=== PATIENT | male | born 1975 | race Caucasian/White ===

== ENCOUNTER 2020-10-23 11:54 | Emergency (ER) | payer BC, MEDICAID, SELFPAY ==
[2020-10-23 12:18] VITALS: BP 148/106; PULSE 88; RESP 16; TEMP 36.8; O2SAT 100
--- NOTE | 2020-10-23 12:19 | ED.GENADULT ---
HPI - General Adult General Chief complaint: Nausea/Vomiting/Diarrhea Stated complaint: BODY ACHES/FEVER/VOMITING/DIARRHEA Time Seen by Provider: 10/23/20 12:10 Source: patient and RN notes reviewed Mode of arrival: ambulatory Limitations: no limitations History of Present Illness HPI narrative: 45-year-old male presents to the [facility] feeling better today, states last day or so he has had nausea, vomiting, diarrhea and generalized body aches associated with subjective fevers. Patient states that multiple people called off at work and states he just needs something to say he was seen by a medical provider, discharge papers would work. Related Data Allergies Allergy/AdvReac Type Severity Reaction Status Date / Time No Known Allergies Allergy Unknown Verified 03/25/20 14:17 Review of Systems Review of Systems: All systems reviewed & are unremarkable except as noted in HPI and below Constitutional: Constitutional: Reports as per HPI, Denies chills and Reports fever(s) (Subjective) Eyes: Eyes: Reports no additional eye complaints and Denies change in vision ENT: Reports system reviewed and no additional complaints, except as documented, Denies dysphagia, Denies dizziness, Denies epistaxis and Denies sore throat Cardiovascular: Cardiovascular: Reports no additional cardiovascular complaints and Denies chest pain Respiratory: Respiratory: Reports no additional respiratory complaints, Denies cough and Denies dyspnea Gastrointestinal: Gastrointestinal: Reports as per HPI, Denies abdominal pain, Reports diarrhea, Reports nausea and Reports vomiting Genitourinary: Genitourinary: Reports no additional male genitourinary complaints Musculoskeletal: Musculoskeletal: Reports no additional musculoskeletal complaints Integumentary/Breasts: Skin/Breast: Reports system reviewed and no additional complaints, except as docu Neurologic: Reports system reviewed and no additional complaints, except as documented Psychiatric: Psychiatric: Reports no additional psychiatric complaints Allergic/Immunologic: Allergic/Immunologic: Reports no additional allergic/immunologic complaints [facility] Past Medical History Medical History (Updated 10/23/20 @ 12:20 by Isabella Kulkarni) Body mass index [BMI] 28.0-28.9, adult (07/23/17) 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 There is no relevant family history pertinent to the patient complaint. Exam Const: General: healthy appearing, no acute distress and alert Nutritional Appearance: well nourished and obese Orientation/consciousness: patient oriented x3 Limitations: no limitations HENMT: Head: normal to inspection Ears: external ears normal, TM's normal bilaterally and EAC's normal Eyes: Conjunctivae: conjunctivae normal Pupils: Equal, round and reactive pupils present Neck: Neck: normal visual inspection, no lymphadenopathy and no meningeal signs Chest: Chest palpation & inspection: normal inspection of the chest Resp: Effort & Inspection: normal respiratory effort and no use of accessory muscles Auscultation: clear to auscultation bilaterally, no crackles, no rales, no rhonchi and no wheezes Cardio: Rate: regular rate Rhythm: regular rhythm GI: GI Palp: Yes Soft to palpation, No Tenderness to palpation present (GI), No Guarding due
[2020-10-24 17:13] LABS: SARS-CoV-2 RNA PCR Negative
== END 2020-10-23 12:28 | disposition home or self-care (01) ==
PROVIDERS: Emergency Provider Nurse Practitioner; PCP Internal Medicine
DX: K52.9 Noninfective gastroenteritis and colitis, unspecified (principal); Z20.822 Contact with and (suspected) exposure to COVID-19; F17.200 Nicotine dependence, unspecified, uncomplicated; M41.117 Juvenile idiopathic scoliosis, lumbosacral region
CPT/HCPCS: 99213; C9803; G0463; U0003; U0005

== ENCOUNTER 2020-12-13 09:03 | Outpatient (CLI) | payer BC, MEDICAID, SELFPAY ==
[2020-12-13 10:54] LABS: Alanine Aminotransferase 26 U/L (4-50); Albumin Level 4.9 g/dL (3.5-5.1); Alkaline Phosphatase 62 U/L (38-126); Anion Gap 9 mmol/L (8-16); Aspartate Amino Transferase 31 U/L (17-59); Bilirubin,Total 0.7 mg/dL (0.2-1.3); Blood Urea Nitrogen 16 mg/dL (9-20); Calcium 9.1 mg/dL (8.4-10.2); Carbon Dioxide 27 mmol/L (22-30); Chloride 104 mmol/L (98-107); Cholesterol 160 mg/dL (0-200); Estimated Glomerular Filt Rate > 60; Glucose 111 mg/dL (65-110); HDL Direct 44 mg/dL; Potassium 4.2 mmol/L (3.4-5.0); Sodium 140 mmol/L (137-145); Triglycerides 90 mg/dL (<150)
[2020-12-13 12:12] LABS: LDL Cholesterol Direct 86 mg/dL
== END 2020-12-13 09:04 | disposition home or self-care (01) ==
PROVIDERS: PCP Internal Medicine; Visit Provider Nurse Practitioner
DX: Z00.00 Encounter for general adult medical examination without abnormal findings (principal); Z13.220 Encounter for screening for lipoid disorders
CPT/HCPCS: 36415; 80053; 80061

== ENCOUNTER 2022-03-11 13:10 | Emergency (ER) | payer BC, MEDICAID, SELFPAY ==
[2022-03-11 13:23] VITALS: BP 157/90; PULSE 78; RESP 16; TEMP 36.6; O2SAT 100
--- NOTE | 2022-03-11 13:58 | ED.URI ---
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 PTSD (post-traumatic stress disorder) Family History Family History Mother Diabetes mellitus Sibling Hypertension Family history of malignant neoplasm Father Family history of cardiovascular disease Other Cerebrovascular accident Social History Social History (Updated 01/01/22 @ 08:56 by Coleen Waite CMA) Smoking packs per day: 0.15 Smoking cigarettes per day: 3.0 Years smoked: 23 Smoking pack-years: 3.45 Smoking status: Light tobacco smoker Tobacco type: pipe Second hand tobacco smoke exposure: Yes Alcohol intake: current Drinks per week: 42 Alcohol use details: beer Substance use: current Substance use type: marijuana Lack of Transportation: No Lack of Food: Never True Difficulty Paying Gas/Electric Bills: No Difficulty Paying for Meds: No Currently Unemployed: No Education: High School Diploma/GED Difficulty w/ Childcare or Family Care: No Course Vital Signs Vital signs: Vital Signs Temperature 36.6 C 03/11/22 13:23 Pulse Rate 78 03/11/22 13:23 Respiratory Rate 16 03/11/22 13:23 Blood Pressure 157/90 H 03/11/22 13:23 Pulse Oximetry 100 03/11/22 13:23 Temperature 36.6 C 03/11/22 13:23 Pulse Rate 78 03/11/22 13:23 Respiratory Rate 16 03/11/22 13:23 Blood Pressure 157/90 H 03/11/22 13:23 Pulse Oximetry 100 03/11/22 13:23 Discharge Plan Discharge Patient Disposition: Home, Self-Care Condition: Stable Instructions: Antibiotic Form Prescriptions: No Action buspirone 7.5 mg tablet 7.5 mg PO DAILY Qty: 90 1RF escitalopram oxalate [Lexapro] 20 mg tablet 20 mg PO DAILY Qty: 90 1RF Follow-up/Referrals: Kalpesh Loja DO [Primary Care Provider] - [facility] [place] Coma Scale Eyes: Open Verbal: Oriented and Alert Motor: Follows Commands [place] Coma Total Score: 15
--- NOTE | 2022-03-11 14:12 | ED.URI ---
HPI - URI/Sore Throat General Chief Complaint: Upper Respiratory Infection Stated Complaint: covid symptoms Time Seen by Provider: 03/11/22 14:05 Source: patient, RN notes reviewed and old records reviewed Mode of arrival: ambulatory Limitations: no limitations History of Present Illness HPI Narrative: 46 year old male who presents to [facility] care with complaints of illness for the past 5 days with loss of taste, weakness and fevers, cough with some sinus congestion and drainage. Patient states that he has been sleeping a lot and he has some mild body aches. Patient has not had COVD vaccinations or any flu shot.Patient reports that his fevers have mostly resolved. has taken rare dose of Tylenol or Ibuprofen. MD elicited complaint: fever, cough and other (weakness) Onset (ago): day(s) (5) Able to tolerate fluids by mouth: Yes Treatments prior to arrival: acetaminophen and ibuprofen Related Data Allergies Allergy/AdvReac Type Severity Reaction Status Date / Time No Known Allergies Allergy Unknown Verified 03/11/22 13:30 Review of Systems Review of Systems: CONSTITUTIONAL Reports malaise, chills, sweats, or fever. EYES: Denies visual changes, redness, or discharge. ENT: Reports rhinorrhea, congestion, sinus pain, no otalgia and sore throat. CARDIOVASCULAR: Denies chest pain, palpitations, or edema. RESPIRATORY: Reports cough.? Denies dyspnea. GASTROINTESTINAL: Denies abdominal pain, nausea, vomiting, diarrhea SKIN: Denies rash or itching. MUSCULOSKELETAL: myalgia.Reported NEUROLOGIC: Denies headache. 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 PTSD (post-traumatic stress disorder) Surgical History Surgical History (Updated 03/17/22 @ 13:45 by Latoya Hadley NP) H/O right inguinal hernia repair Family History Family History Mother Diabetes mellitus Sibling Hypertension Family history of malignant neoplasm Father Family history of cardiovascular disease Other Cerebrovascular accident Social History Social History (Updated 03/17/22 @ 13:55 by Latoya Hadley NP) Smoking packs per day: 0.15 Smoking cigarettes per day: 3.0 Years smoked: 23 Smoking pack-years: 3.45 Smoking status: Current every day smoker Tobacco type: pipe Second hand tobacco smoke exposure: Yes Alcohol intake: current Alcohol use details: beer Substance use: current Substance use type: marijuana Lack of Transportation: No Lack of Food: Never True Difficulty Paying Gas/Electric Bills: No Difficulty Paying for Meds: No Currently Unemployed: No Education: High School Diploma/GED Difficulty w/ Childcare or Family Care: No Comments At time of signature, agree with nursing past medical, surgical, social and family history. There is no relevant family history pertinent to the presenting complaint Exam Narrative: GENERAL: Well-appearing, well-nourished, and in no acute distress. HEAD: Normocephalic EYES: PERRLA, conjunctivae clear ENT: Nares clear, turbinates edematous and erythematous, clear discharge. Mucous membranes moist. TM pearly carpenter with dull light reflex bilaterally; no tragal tenderness. Oropharynx erythematous without lesions. Tonsils not enlarged and without exudate, no drooling, no hoarseness, no trismus, uvula midline.some post nasal drainage NECK: Supple. No lymphadenopathy CHEST: Clear to auscultation, breath sounds equal. No wheezing, rhonchi, rales, or stridor. No respiratory distress, speaks in full sentences.cough noted with SAO2 100% on room air HEART: Regular rate and rhythm. No murmur heard. SKIN: Warm
== END 2022-03-11 14:32 | disposition home or self-care (01) ==
PROVIDERS: Emergency Provider Registered Nurse; PCP Internal Medicine
DX: U07.1 COVID-19 (principal); F17.210 Nicotine dependence, cigarettes, uncomplicated; F17.290 Nicotine dependence, other tobacco product, uncomplicated; F12.90 Cannabis use, unspecified, uncomplicated; M41.116 Juvenile idiopathic scoliosis, lumbar region; Z28.310 Unvaccinated for COVID-19
CPT/HCPCS: 87426; 99213; C9803; G0463

== ENCOUNTER 2022-07-12 15:01 | Emergency (ER) | payer BC, MEDICAID, SELFPAY ==
--- NOTE | 2022-07-12 15:06 | ED.URI ---
HPI - URI/Sore Throat General Chief Complaint: Upper Respiratory Infection Stated Complaint: fever,congestion Time Seen by Provider: 07/12/22 15:03 Source: patient and RN notes reviewed History of Present Illness HPI Narrative: 46 yo M presents to urgent care with requests for a work note to go back to work. Pt states he developed a fever and was sniffling night into Wednesday. Pt states he called off on Wednesday and his place of work is requesting he be seen. Pt states the fever broke by Wednesday and his symptoms are improving. Pt reports an intermittent cough at this time. Denies any fevers, chills, chest pain, SOB, ear pain, sore throat, N/V/D. Related Data Allergies Allergy/AdvReac Type Severity Reaction Status Date / Time No Known Allergies Allergy Unknown Verified 07/12/22 15:06 Review of Systems Review of Systems: Pertinent positives and pertinent negatives per HPI. 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 PTSD (post-traumatic stress disorder) Surgical History Surgical History (Updated 03/17/22 @ 13:45 by Latoya Hadley NP) H/O right inguinal hernia repair Family History Family History Mother Diabetes mellitus Sibling Hypertension Family history of malignant neoplasm Father Family history of cardiovascular disease Other Cerebrovascular accident Social History Social History (Updated 03/17/22 @ 13:55 by Latoya Hadley NP) Smoking packs per day: 0.15 Smoking cigarettes per day: 3.0 Years smoked: 23 Smoking pack-years: 3.45 Smoking status: Current every day smoker Tobacco type: pipe Second hand tobacco smoke exposure: Yes Alcohol intake: current Alcohol use details: beer Substance use: current Substance use type: marijuana Lack of Transportation: No Lack of Food: Never True Difficulty Paying Gas/Electric Bills: No Difficulty Paying for Meds: No Currently Unemployed: No Education: High School Diploma/GED Difficulty w/ Childcare or Family Care: No Comments At the time of my signature, I reviewed and agree with the nursing past medical, surgical, social, and family history. There is no relevant family history pertinent to the patient complaint. Exam Narrative: GENERAL: This is a well-nourished, well-developed patient, in no apparent distress. HEAD: normocephalic, atraumatic. EYES:Sclera clear/white. Vision is grossly intact. EARS: External ears normal, auditory canals clear and without drainage. Hearing grossly intact. NOSE: External nose normal with no obvious nasal discharge, nares without redness, no rhinorrhea. THROAT: Mucous membranes moist, posterior pharynx clear. NECK: Neck supple, non-tender without lymphadenopathy, masses or thyromegaly. CARDIOVASCULAR: Regular rate and rhythm without murmurs, gallops, or rubs. RESPIRATORY: Clear to auscultation. Breath sounds equal bilaterally. No wheezes, rales, or rhonchi. SKIN: warm, intact with no suspicious lesions or rash, good texture and turgor. NEURO: awake, alert, and oriented to person, place and time. There were no obvious focal neurologic abnormalities. Course Course Level of Care: Express Care Visit Vital Signs Vital signs: Reviewed MDM - URI/Sore Throat MDM Narrative Medical decision making narrative: Pt in NAD. Just asking for a work note to go back to work tomorrow. Differential Diagnosis Differential diagnosis: Likely upper respiratory infection, viral infection and pharyngitis Critical Care Time Critical Care Time Critical Care Time: No Discharge Plan Discharge Clinical Impression: Encounter for well adult exam without abnormal findings Patient Disposition: Home,
[2022-07-12 15:10] VITALS: BP 144/90; PULSE 70; RESP 16; TEMP 36.4; O2SAT 99
== END 2022-07-12 15:17 | disposition home or self-care (01) ==
PROVIDERS: Emergency Provider Nurse Practitioner Family; PCP Internal Medicine
DX: Z71.1 Person with feared health complaint in whom no diagnosis is made (principal); F17.210 Nicotine dependence, cigarettes, uncomplicated; F12.90 Cannabis use, unspecified, uncomplicated; F32.A Depression, unspecified
CPT/HCPCS: 99211; G0463

== ENCOUNTER 2022-08-10 15:20 | Emergency (ER) | payer BC, MEDICAID, SELFPAY ==
--- NOTE | ~2022-08-10 | XR_ITS ---
XR chest 2V DATE: 08/10/2022 15:46 INDICATION: Cough for 2 weeks TECHNIQUE: 2 views COMPARISON: None FINDINGS: Normal heart size. No hilar or mediastinal enlargement. No pulmonary infiltrate or consolid ation, pleural effusion or pulmonary vascular congestion or pneumothorax. IMPRESSION: No active cardiopulmonary disease Reviewed, dictated and finalized at location B.
[2022-08-10 15:28] VITALS: BP 153/97; PULSE 83; RESP 16; TEMP 36.7; O2SAT 98
--- NOTE | 2022-08-10 15:28 | ED.URI ---
HPI - URI/Sore Throat General Chief Complaint: Upper Respiratory Infection Stated Complaint: sore throat,cough Time Seen by Provider: 08/10/22 15:35 Source: patient, RN notes reviewed and old records reviewed Mode of arrival: ambulatory Limitations: no limitations History of Present Illness HPI Narrative: 46 year old male who presents to [facility] care with complaints of chest congestion and productive cough for the past 2 weeks. Patient was seen in the Clinic on July 12 for return to work note for fever and cough which had resolved. 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 Patient reports that he has not had a known fever, chills or sweats or any acute shortness of breath. Patient reports he had coughing fit early Wednesday morning and did not go to work on Wednesday and needs note to return. MD elicited complaint: cough and other (congestion) Onset (ago): week(s) (2) Description of mucous: yellow Able to tolerate fluids by mouth: Yes Treatments prior to arrival: none Related Data Allergies Allergy/AdvReac Type Severity Reaction Status Date / Time No Known Allergies Allergy Unknown Verified 08/10/22 15:26 Review of Systems Review of Systems: CONSTITUTIONAL: Denies malaise, chills, sweats, or fever. EYES: Denies visual changes, redness, or discharge. ENT: Reports rhinorrhea, congestion, no sinus pain,no otalgia no sore throat, some hoarseness. CARDIOVASCULAR: Denies chest pain, palpitations, or edema. RESPIRATORY: Reports cough.? Denies any acute dyspnea. GASTROINTESTINAL: Denies abdominal pain, nausea, vomiting, diarrhea SKIN: Denies rash or itching. MUSCULOSKELETAL: Denies myalgia. NEUROLOGIC: Denies headache. 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 PTSD (post-traumatic stress disorder) Surgical History Surgical History (Updated 03/17/22 @ 13:45 by Latoya Hadley NP) H/O right inguinal hernia repair Family History Family History Mother Diabetes mellitus Sibling Hypertension Family history of malignant neoplasm Father Family history of cardiovascular disease Other Cerebrovascular accident Social History Social History (Updated 03/17/22 @ 13:55 by Latoya Hadley NP) Smoking packs per day: 0.15 Smoking cigarettes per day: 3.0 Years smoked: 23 Smoking pack-years: 3.45 Smoking status: Current every day smoker Tobacco type: pipe Second hand tobacco smoke exposure: Yes Alcohol intake: current Alcohol use details: beer Substance use: current Substance use type: marijuana Lack of Transportation: No Lack of Food: Never True Difficulty Paying Gas/Electric Bills: No Difficulty Paying for Meds: No Currently Unemployed: No Education: High School Diploma/GED Difficulty w/ Childcare or Family Care: No Comments At time of signature, agree with nursing past medical, surgical, social and family history. There is no relevant family history pertinent to the presenting complaint Exam Narrative: GENERAL: Well-appearing, well-nourished, and in no acute distress. HEAD: Normocephalic EYES: PERRLA, conjunctivae clear ENT: Nares clear, turbinates edematous and erythematous, clear discharge. Mucous membranes moist. TM pearly carpenter with dull light reflex bilaterally; no tragal tenderness. Oropharynx erythematous without lesions. Tonsils not enlarged and without exudate, no drooling, positive for hoarseness, no trismus, uvula midline.post nasal drainage noted. NECK: Supple. No lymphadenopathy CHEST: Clear to auscultation, breath sounds equal. No wh
== END 2022-08-10 16:05 | disposition home or self-care (01) ==
PROVIDERS: Emergency Provider Registered Nurse
DX: J06.9 Acute upper respiratory infection, unspecified (principal); R05.9 Cough, unspecified; F17.210 Nicotine dependence, cigarettes, uncomplicated; F12.90 Cannabis use, unspecified, uncomplicated; M41.116 Juvenile idiopathic scoliosis, lumbar region; F32.A Depression, unspecified
CPT/HCPCS: 71046; 99213; G0463

== ENCOUNTER 2022-10-04 16:35 | Emergency (ER) | payer BC, MEDICAID, SELFPAY ==
--- NOTE | 2022-10-04 16:47 | ED.GENADULT ---
HPI - General Adult General Chief complaint: Wound/Laceration Stated complaint: forehead laceration Time Seen by Provider: 10/04/22 16:39 Source: patient and RN notes reviewed History of Present Illness HPI narrative: 47 yo M presents to urgent care with visitor at side. 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 Pt states he hit his forehead on the garage floor, causing a laceration Pt states he believes he was out for only a couple seconds and the impact woke him up. Pt states he applied pressure to the laceration which resolved his bleeding but he has had a headache ever since. Pt denies any vomiting, visual disturbance, neck pain, numbness, or tingling. Pt has not taken anything for his headache pain. Pt is requesting a work note to go back to work tomorrow if possible. Related Data Allergies Allergy/AdvReac Type Severity Reaction Status Date / Time No Known Allergies Allergy Unknown Verified 10/04/22 16:55 Review of Systems Review of Systems: CONSTITUTIONAL: Denies fever, chills, or sweats. EYES: Denies visual changes, redness, or discharge. ENT: Denies otalgia and sore throat CARDIOVASCULAR: Denies chest pain, palpitations, or edema. RESPIRATORY: Denies cough or dyspnea. GASTROINTESTINAL: Denies abdominal pain, nausea, vomiting, or diarrhea. GENITOURINARY: Denies dysuria or hematuria. SKIN: laceration to forehead MUSCULOSKELETAL: Denies back pain, joint pain, or myalgia. NEUROLOGIC: headache Pertinent positives per HPI. 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 PTSD (post-traumatic stress disorder) Surgical History Surgical History (Updated 03/17/22 @ 13:45 by Latoya Hadley NP) H/O right inguinal hernia repair Family History Family History Mother Diabetes mellitus Sibling Hypertension Family history of malignant neoplasm Father Family history of cardiovascular disease Other Cerebrovascular accident Social History Social History (Updated 03/17/22 @ 13:55 by Latoya Hadley NP) Smoking packs per day: 0.15 Smoking cigarettes per day: 3.0 Years smoked: 23 Smoking pack-years: 3.45 Smoking status: Current every day smoker Tobacco type: pipe Second hand tobacco smoke exposure: Yes Alcohol intake: current Alcohol use details: beer Substance use: current Substance use type: marijuana Lack of Transportation: No Lack of Food: Never True Difficulty Paying Gas/Electric Bills: No Difficulty Paying for Meds: No Currently Unemployed: No Education: High School Diploma/GED Difficulty w/ Childcare or Family Care: No Comments At the time of my signature, I reviewed and agree with the nursing past medical, surgical, social, and family history. There is no relevant family history pertinent to the patient complaint. Exam Narrative: GENERAL: This is a well-nourished, well-developed patient, in no apparent distress. HEAD: normocephalic, atraumatic. EYES: Sclera clear/white. Vision is grossly intact. EARS: External ears normal, auditory canals clear and without drainage, TMs normal without perforation. Hearing grossly intact. NOSE: External nose normal with no obvious nasal discharge, nares without redness, no rhinorrhea. THROAT: Mucous membranes moist, posterior pharynx clear. NECK: Neck supple, non-tender without lymphadenopathy, masses or thyromegaly. CARDIOVASCULAR: Regular rate and rhythm without murmurs, gallops, or rubs. RESPIRATORY: Clear to auscultation. Breath sounds equal bilaterally. No wheezes, rales, or rhonchi. SKIN: 2.5-3 cm, healing, scabbed, wo
[2022-10-04 16:50] VITALS: BP 124/83; PULSE 80; RESP 16; TEMP 36.8; O2SAT 100
== END 2022-10-04 17:13 | disposition home or self-care (01) ==
PROVIDERS: Emergency Provider Nurse Practitioner Family; PCP Family Medicine
DX: S06.0X0A Concussion without loss of consciousness, initial encounter (principal); W19.XXXA Unspecified fall, initial encounter; Y99.0 Civilian activity done for income or pay; M41.117 Juvenile idiopathic scoliosis, lumbosacral region; F17.210 Nicotine dependence, cigarettes, uncomplicated; F17.290 Nicotine dependence, other tobacco product, uncomplicated; F32.A Depression, unspecified; F43.10 Post-traumatic stress disorder, unspecified
CPT/HCPCS: 99211; G0463

== ENCOUNTER 2022-10-05 14:04 | Emergency (ER) | payer BC, MEDICAID, SELFPAY ==
--- NOTE | ~2022-10-05 | CT_ITS ---
EXAMINATION: CT brain wo con DATE: 10/05/2022 18:15 INDICATION: syncope . TECHNIQUE: Computed tomography (CT) of the head was performed without intravenous contrast. The mA wa s adjusted according to patient size. Iterative reconstruction technique was employed. The dose-lengt h product was 681.00 mGy-cm. COMPARISON: None. FINDINGS: No acute intracranial hemorrhage or extra-axial fluid collection. No hydrocephalus, mass, or herniation. No acute ischemic infarct. Unremarkable dural venous sinus attenuation. No acute osseous abnormality. The aerated spaces are clear. IMPRESSION: No acute intracranial process. Reviewed, dictated and finalized at location K.
--- NOTE | 2022-10-05 14:07 | ECG_ITS ---
Measurements Intervals [place] Rate: 74 P: 29 VA: 152 QRS: 1 QRSD: 98 T: 32 QT: 372 QTc: 414 Interpretive Statements SINUS RHYTHM BORDERLINE R WAVE PROGRESSION, ANTERIOR LEADS CONSIDER INFERIOR INFARCT, AGE INDETERMINATE ABNORMAL ECG NO PREVIOUS ECG AVAILABLE FOR COMPARISON Electronically Signed On 10-05-2022 16:38:23 CDT by Pedro Love D.O.
[2022-10-05 14:44] VITALS: BP 141/83; PULSE 65; RESP 16; TEMP 36.7; O2SAT 99
--- NOTE | 2022-10-05 17:53 | ED.SYNCOPE ---
HPI - Syncope General Chief Complaint: Dizziness Stated Complaint: DIZZINESS Time Seen by Provider: 10/05/22 17:44 History of Present Illness HPI narrative: Pt presents with recurring intermittent episodes of syncope which occured when he is coughing. Pt denies CP. Pt had a coughing episode 5 days ago and passed out and fell forward striking head on concrete. Pt has mild TAYLOR still. Pt is smoker. Pt has never had any work up for this. 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 PTSD (post-traumatic stress disorder) Surgical History Surgical History (Updated 03/17/22 @ 13:45 by Latoya Hadley NP) H/O right inguinal hernia repair Family History Family History Mother Diabetes mellitus Sibling Hypertension Family history of malignant neoplasm Father Family history of cardiovascular disease Other Cerebrovascular accident Social History Social History (Updated 03/17/22 @ 13:55 by Latoya Hadley NP) Smoking packs per day: 0.15 Smoking cigarettes per day: 3.0 Years smoked: 23 Smoking pack-years: 3.45 Smoking status: Current every day smoker Tobacco type: pipe Second hand tobacco smoke exposure: Yes Alcohol intake: current Alcohol use details: beer Substance use: current Substance use type: marijuana Lack of Transportation: No Lack of Food: Never True Difficulty Paying Gas/Electric Bills: No Difficulty Paying for Meds: No Currently Unemployed: No Education: High School Diploma/GED Difficulty w/ Childcare or Family Care: No Exam Const: General: healthy appearing Nutritional Appearance: well nourished Orientation/consciousness: patient oriented x3 Limitations: no limitations HENMT: Head: laceration (healing stellate laceration to foerhead) Eyes: Conjunctivae: conjunctivae normal Pupils: Equal, round and reactive pupils present EOM: EOMs intact bilaterally Neck: Neck: normal visual inspection Resp: Effort & Inspection: normal respiratory effort Auscultation: clear to auscultation bilaterally Cardio: Rate: regular rate Rhythm: regular rhythm Skin: General skin exam: normal color Rashes: no rashes Neuro: General: patient oriented x3, moves all extremities, no meningeal signs, no focal motor deficits and CN's II-XI intact bilaterally Cranial nerves: Yes Nystagmus not present Speech: normal speech Gait exam (Neuro): Normal gait present Extrem: General: normal to inspection and no clubbing, cyanosis or edema Psych: Mental Status: mental status grossly normal Affect: normal affect Attitude: cooperative Course Vital Signs Vital signs: Vital Signs Temperature 98.1 F 10/05/22 14:44 Pulse Rate 65 10/05/22 14:44 Respiratory Rate 16 10/05/22 14:44 Blood Pressure 141/83 H 10/05/22 14:44 Pulse Oximetry 99 10/05/22 14:44 Oxygen Delivery Room Air 10/05/22 14:44 Temperature 98.1 F 10/05/22 14:44 Pulse Rate 65 10/05/22 14:44 Respiratory Rate 16 10/05/22 14:44 Blood Pressure 141/83 H 10/05/22 14:44 Pulse Oximetry 99 10/05/22 14:44 Oxygen Delivery Room Air 10/05/22 14:44 MDM - Syncope MDM Narrative Medical decision making narrative: ssems like cough induced syncope but will check CT head since hit head and had TAYLOR. will check EKG and labs. labs ekg and ct all fine safe for discharge home. Lab Data Attestation: I reviewed the patient's lab results. 10/05/22 18:05
[2022-10-05 18:12] LABS: Basophils Absolute Auto 0.1 K/mm3 (0.0-0.1); Basophils Percent Auto 0.8 % (0.2-1.2); Eosinophils Absolute Auto 0.2 K/mm3 (0-0.3); Eosinophils Percent Auto 2.5 % (0-4.4); Hematocrit 46.6 % (42.0-52.0); Hemoglobin 16.5 g/dL (14.0-18.0); Immature Granulocyte Absolute 0.03 K/mm3 (0.00-0.031); Immature Granulocyte Percent A 0.3 % (0-0.5); Lymphocytes Absolute Auto 2.06 K/mm3 (0.9-3.2); Lymphocytes Percent Auto 23.5 % (18.3-44.2); Mean Corpuscular HGB Conc 35.4 g/dl (32-36); Mean Corpuscular Hemoglobin 35.8 pg (26-34); Mean Corpuscular Volume 101.1 fl (80-100); Mean Platelet Volume 8.7 fl (7.4-10.4); Monocytes Absolute Auto 0.7 K/mm3 (0.1-0.6); Monocytes Percent Auto 7.5 % (2.6-8.5); Neutrophils Absolute Auto 5.7 K/mm3 (1.3-6.7); Neutrophils Percent Auto 65.4 % (45.5-73.1); Platelet Count Result 229 k/mm3 (150-375); Red Blood Count 4.61 M/mm3 (4.6-6.20); White Blood Count 8.8 K/mm3 (4.5-10.0)
[2022-10-05 18:22] LABS: Alanine Aminotransferase 44 U/L (6-50); Alkaline Phosphatase 58 U/L (38-126); Anion Gap 10 mmol/L (8-16); Aspartate Amino Transferase 35 U/L (17-59); Bilirubin,Total 0.5 mg/dL (0.2-1.3); Blood Urea Nitrogen 14 mg/dL (9-20); Calcium 9.2 mg/dL (8.4-10.2); Carbon Dioxide 27 mmol/L (22-30); Chloride 102 mmol/L (98-107); Estimated CRCL calculation 105 ml/min; Estimated Glomerular Filt Rate > 60; Glucose 93 mg/dL (65-110); Potassium 3.9 mmol/L (3.4-5.0); Sodium 139 mmol/L (137-145)
[2022-10-05 18:23] LABS: Partial Thromboplastin Time 27.8 SECONDS (22.3-36.8); Prothrombin Time 13.5 Seconds (11.1-14.7)
[2022-10-05 18:56] VITALS: BP 138/90; PULSE 60; RESP 19; O2SAT 98
== END 2022-10-05 18:59 | disposition home or self-care (01) ==
PROVIDERS: Emergency Provider Emergency Medicine; PCP Family Medicine
DX: R55 Syncope and collapse (principal); R05.4 Cough syncope; M41.117 Juvenile idiopathic scoliosis, lumbosacral region; F32.A Depression, unspecified; F43.10 Post-traumatic stress disorder, unspecified; F17.290 Nicotine dependence, other tobacco product, uncomplicated; R94.31 Abnormal electrocardiogram [ECG] [EKG]
CPT/HCPCS: 36415; 70450; 80053; 85025; 85610; 85730; 93005; 99284

== ENCOUNTER 2022-11-17 17:07 | Emergency (ER) | payer SELFPAY ==
--- NOTE | 2022-11-17 17:08 | ED.URI ---
HPI - URI/Sore Throat General Chief Complaint: Upper Respiratory Infection Stated Complaint: Flu symptoms Source: patient and RN notes reviewed Mode of arrival: ambulatory Limitations: no limitations History of Present Illness HPI Narrative: Patient is a 47-year-old male who presents to the [facility] with requests for work note. Patient states that he had flu like symptoms starting on Wednesday. Patient reports generalized body aches, fatigue, nausea, and vomiting x 1. States that he is no longer experiencing symptoms, but needs an excuse from work. Patient states that he had 5-6 coworkers with similar symptoms that missed work, so his boss is requiring a work note. He denies all symptoms at this time. Denies chest pain or shortness of breath. Denies nausea, vomiting, diarrhea, abdominal pain. Denies cough, congestion, and fever. Related Data Allergies Allergy/AdvReac Type Severity Reaction Status Date / Time No Known Allergies Allergy Unknown Verified 10/04/22 16:55 Review of Systems Review of Systems: CONSTITUTIONAL: Denies fever, chills, or sweats. EYES: Denies visual changes, redness, or discharge. ENT: Denies otalgia and sore throat CARDIOVASCULAR: Denies chest pain, palpitations, or edema. RESPIRATORY: Denies cough or dyspnea. GASTROINTESTINAL: Denies abdominal pain, nausea, vomiting, or diarrhea. GENITOURINARY: Denies dysuria or hematuria. SKIN: Denies rash or itching. MUSCULOSKELETAL: Denies back pain, joint pain, or myalgia. NEUROLOGIC: Denies headache, numbness, or weakness. Pertinent positives per HPI. 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 PTSD (post-traumatic stress disorder) Surgical History Surgical History H/O right inguinal hernia repair Family History Family History Mother Diabetes mellitus Sibling Hypertension Family history of malignant neoplasm Father Family history of cardiovascular disease Other Cerebrovascular accident Social History Social History Smoking packs per day: 0.15 Smoking cigarettes per day: 3.0 Years smoked: 23 Smoking pack-years: 3.45 Smoking status: Current every day smoker Tobacco type: pipe Second hand tobacco smoke exposure: Yes Alcohol intake: current Alcohol use details: beer Substance use: current Substance use type: marijuana Lack of Transportation: No Lack of Food: Never True Difficulty Paying Gas/Electric Bills: No Difficulty Paying for Meds: No Currently Unemployed: No Education: High School Diploma/GED Difficulty w/ Childcare or Family Care: No Comments At the time of my signature, I reviewed and agree with the nursing past medical, surgical, social, and family history. There is no relevant family history pertinent to the patient complaint. Exam Narrative: GENERAL: This is a well-nourished, well-developed patient, in no apparent distress. HEAD: normocephalic, atraumatic. EYES: Sclera clear/white. Vision is grossly intact. EARS: External ears normal. Hearing grossly intact. NOSE: External nose normal with no obvious nasal discharge, nares without redness, no rhinorrhea. THROAT: Mucous membranes moist, posterior pharynx clear. NECK: Neck supple, non-tender without lymphadenopathy, masses or thyromegaly. CARDIOVASCULAR: Regular rate and rhythm without murmurs, gallops, or rubs. RESPIRATORY: Clear to auscultation. Breath sounds equal bilaterally. No wheezes, rales, or rhonchi. GASTROINTESTINAL: Abdomen soft, non-tender, nondistended. Bowel sounds are active. No hepato-splenomegaly, or palpable masses. No guarding. SKI
[2022-11-17 17:18] VITALS: BP 153/89; PULSE 80; RESP 16; TEMP 36.8; O2SAT 98
== END 2022-11-17 17:26 | disposition home or self-care (01) ==
PROVIDERS: Emergency Provider Nurse Practitioner
DX: B34.9 Viral infection, unspecified (principal); F17.210 Nicotine dependence, cigarettes, uncomplicated
CPT/HCPCS: 99211; G0463

== ENCOUNTER 2022-12-31 17:04 | Emergency (ER) | payer BC, MEDICAID, SELFPAY ==
[2022-12-31 17:20] VITALS: BP 145/95; PULSE 64; RESP 16; TEMP 36.6; O2SAT 99
--- NOTE | 2022-12-31 17:31 | ED.GENADULT ---
HPI - General Adult General Chief complaint: Abdominal Pain Stated complaint: stomach issue. needs work note Time Seen by Provider: 12/31/22 17:09 Source: patient Mode of arrival: ambulatory Limitations: no limitations History of Present Illness HPI narrative: Patient is a 39-year-old male who presents requesting a note to return to work. Patient states he was sent home from work on Wednesday for diarrhea and abdominal cramping. Reports has gone through the office and his home. Patient states he is no longer having diarrhea and denies any abdominal cramping at this time. Patient has been afebrile for 48 hours. Related Data Allergies Allergy/AdvReac Type Severity Reaction Status Date / Time No Known Allergies Allergy Unknown Verified 10/04/22 16:55 Review of Systems Review of Systems: All systems reviewed & are unremarkable except as noted in HPI and below Constitutional: Constitutional: Denies body ache(s), Denies chills, Denies fatigue, Denies fever(s), Denies headache(s), Denies malaise and Denies weakness Eyes: Eyes: Denies blurry vision, Denies irritation and Denies loss of vision ENT: Denies otalgia, Denies headache(s), Denies nasal discharge, Denies sinus pain and Denies sore throat Cardiovascular: Cardiovascular: Denies chest pain, Denies irregular heart rhythm and Denies dyspnea Respiratory: Respiratory: Denies dyspnea Gastrointestinal: Gastrointestinal: Denies abdominal pain, Denies melena, Denies hematochezia, Denies diarrhea, Denies nausea and Denies vomiting Musculoskeletal: Musculoskeletal: Denies back pain, Denies myalgias and Denies arthralgias Integumentary/Breasts: Skin/Breast: Denies pruritus and Denies rash Neurologic: Denies headache(s), Denies loss of vision and Denies weakness Psychiatric: Psychiatric: Reports no additional psychiatric complaints Endocrine: Endocrine: Denies fatigue PMFSH Past Medical History Medical History Body mass index [BMI] 28.0-28.9, adult (07/23/17) Depression 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 PTSD (post-traumatic stress disorder) Surgical History Surgical History H/O right inguinal hernia repair Family History Family History Mother Diabetes mellitus Sibling Hypertension Family history of malignant neoplasm Father Family history of cardiovascular disease Other Cerebrovascular accident Social History Social History Smoking packs per day: 0.15 Smoking cigarettes per day: 3.0 Years smoked: 23 Smoking pack-years: 3.45 Smoking status: Current every day smoker Tobacco type: pipe Second hand tobacco smoke exposure: Yes Alcohol intake: current Alcohol use details: beer Substance use: current Substance use type: marijuana Lack of Transportation: No Lack of Food: Never True Difficulty Paying Gas/Electric Bills: No Difficulty Paying for Meds: No Currently Unemployed: No Education: High School Diploma/GED Difficulty w/ Childcare or Family Care: No Comments At time of signature, agree with nursing past medical, surgical, social and family history. There is no relevant family history pertinent to the presenting complaint. Exam Const: General: cooperative, healthy appearing, comfortable, no acute distress and well nourished Nutritional Appearance: well nourished Orientation/consciousness: patient oriented x3 Limitations: no limitations HENMT: Head: normal to inspection, normocephalic and atraumatic Ears: hearing grossly normal bilaterally and external ears normal Face/Nose/Sinus: Normal external nose present, normal facial exam and face symmetric Face and sinus: normal facial exam and face symmetric Mouth: Yes lip normal Ey
== END 2022-12-31 17:35 | disposition home or self-care (01) ==
PROVIDERS: Emergency Provider Nurse Practitioner Family; PCP Internal Medicine
DX: Z02.79 Encounter for issue of other medical certificate (principal); Z71.1 Person with feared health complaint in whom no diagnosis is made; F17.210 Nicotine dependence, cigarettes, uncomplicated; F12.90 Cannabis use, unspecified, uncomplicated
CPT/HCPCS: 99211; G0463

== ENCOUNTER 2024-02-27 13:08 | Emergency (ER) | payer SELFPAY ==
[2024-02-27 13:52] VITALS: BP 153/99; PULSE 87; RESP 16; TEMP 35.9; O2SAT 98
--- NOTE | 2024-02-27 15:05 | ED.GENADULT ---
HPI - General Adult General Chief complaint: Unspecified Stated complaint: Doctors Note Source: patient Mode of arrival: ambulatory Limitations: no limitations History of Present Illness HPI narrative: Patient presents requesting a note to allow him to return to work tomorrow. He indicates he missed work Wednesday, and Wednesday of last week secondary to nausea, vomiting and diarrhea. Those symptoms have resolved. He did not have a fever or any respiratory symptoms. He has no physical complaints at the present time. Related Data Allergies Allergy/AdvReac Type Severity Reaction Status Date / Time No Known Allergies Allergy Unknown Verified 02/27/24 13:43 Review of Systems Review of Systems: CONSTITUTIONAL: Denies fever, chills, or sweats. EYES: Denies visual changes, redness, or discharge. ENT: Denies rhinorrhea, congestion, sore throat, or otalgia. CARDIOVASCULAR: Denies chest pain, palpitations, or edema. RESPIRATORY: Denies cough or dyspnea. GASTROINTESTINAL: Reports recent nausea, vomiting, diarrhea, none currently. Denies abdominal pain GENITOURINARY: Denies dysuria or hematuria. SKIN: Denies rash or itching. MUSCULOSKELETAL: Denies back pain, joint pain, or myalgia. NEUROLOGIC: Denies headache, numbness, dizziness, or weakness. PSYCHIATRIC: Denies anxiety or depression. 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 PTSD (post-traumatic stress disorder) Surgical History Surgical History H/O right inguinal hernia repair Family History Family History Mother Diabetes mellitus Sibling Hypertension Family history of malignant neoplasm Father Family history of cardiovascular disease Other Cerebrovascular accident Social History Social History Smoking packs per day: 0.15 Smoking cigarettes per day: 3.0 Years smoked: 23 Smoking pack-years: 3.45 Smoking status: Current every day smoker Tobacco type: pipe Second hand tobacco smoke exposure: Yes Alcohol intake: current Alcohol use details: beer Substance use: current Substance use type: marijuana Lack of Transportation: No Lack of Food: Never True Difficulty Paying Gas/Electric Bills: No Difficulty Paying for Meds: No Currently Unemployed: No Education: High School Diploma/GED Difficulty w/ Childcare or Family Care: No Exam Narrative: GENERAL: Well-appearing, well-nourished, and in no acute distress. HEAD: Normocephalic, atraumatic. EYES: PERRLA and EOMI. ENT: Nares clear, no rhinorrhea or epistaxis. Mucous membranes moist. Oropharynx without tonsillar hypertrophy exudate or other lesions. 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 No adenopathy or masses. No carotid bruits or JVD CHEST: Clear to auscultation. No respiratory distress. No wheezes rales or rhonchi HEART: Regular rate and rhythm. No murmur heard. Normal peripheral pulses. ABDOMEN: Soft, nontender, nondistended, normal active bowel sounds. EXTREMITIES: Normal range of motion. No edema. SKIN: Warm, dry, no rash. NEURO: No focal deficits. Alert and oriented x3. PSYCH: Normal mood and affect. Course Course Emergency Course: This is a 48-year-old male who presented requesting a note to allow him to return to work. This is a reasonable request. His symptoms have resolved. He should increase hydration follow up with his primary doctor. In the event that he has a decline in his condition or has serious symptoms he should go to the emergency department. Patient in agreement with plan of care. Level of Care: Express Care Visit Vital Signs Vital signs: Vital Signs Temperature 35.9 C L 02/27/24 13:52 Pulse Rate 87 02/27/24 13:52 Respiratory Rate 16 02/27/24 13:52 Blood Pressure 153/99 H 02/27/24 13:52 Pulse Oximetry 98 02/27/24 13:52 Temperature 35.9 C L 02/27/24 13:52 Pulse Rate 87 02/27/24 13:52 Respiratory Rate 16 02/27/24 13:52 Blood Pressure 153/99 H 02/27/24 13:52 Pulse Oximetry 98 02/27/24 13:52 Medical Decision Making Vital Signs Vital Signs: Vital Signs Temperature 35.9 C L 02/27/24 13:52 Pulse Rate 87 02/27/24 13:52 Respiratory Rate 16 02/27/24 13:52 Blood Pressure 153/99 H 02/27/24 13:52 Pulse Oximetry 98 02/27/24 13:52 Temperature 35.9 C L 02/27/24 13:52 Pulse Rate 87 02/27/24 13:52 Respiratory Rate 16 02/27/24 13:52 Blood Pressure 153/99 H 02/27/24 13:52 Pulse Oximetry 98 02/27/24 13:52 Discharge Plan Discharge Clinical Impression: Return to work exam Patient Disposition: Home, Self-Care Condition: Stable Instructions: Antibiotic Form, Acute Nausea and Vomiting (DC), Acute Diarrhea (ED) Patient Language: Bhutanese Prescriptions: No Action ondansetron HCl 4 mg tablet 4 mg PO Q8H PRN (Reason: nausea and vomiting) Qty: 20 0RF aripiprazole 30 mg tablet 30 mg PO DAILY Qty: 90 1RF escitalopram oxalate [Lexapro] 20 mg tablet 20 mg PO DAILY Qty: 90 1RF Follow-up/Referrals: Michael Higgins MD [Physician] - Stand Alone Forms: Work/School Release IP Time of Disposition: 15:02
== END 2024-02-27 15:13 | disposition home or self-care (01) ==
PROVIDERS: Emergency Provider Nurse Practitioner
DX: Z02.79 Encounter for issue of other medical certificate (principal); F17.210 Nicotine dependence, cigarettes, uncomplicated; F12.90 Cannabis use, unspecified, uncomplicated
CPT/HCPCS: 99211; 99213; G0463